=== PATIENT | female | born 1980 | race Caucasian/White ===

== ENCOUNTER 2023-09-12 09:11 | Outpatient (RCR) | payer BC, SELFPAY | END 2023-09-12 11:31 | disposition home or self-care (01) | LOC: RPT 09:11 | PROVIDERS: ATTENDING PHYSICIAN Obstetrics & Gynecology; PRIMARYCARE PHYSICIAN Family Medicine | DX: N39.46 Mixed incontinence (principal) | CPT/HCPCS: 97110; 97112 ==

== ENCOUNTER → 2023-12-21 11:42 | Outpatient (REF) | payer BC, SELFPAY | LOC: RAD 11:42 | PROVIDERS: ATTENDING PHYSICIAN Physician Assistant Medical; FAMILY PHYSICIAN Family Medicine | DX: M54.2 Cervicalgia (principal); M54.9 Dorsalgia, unspecified; M25.572 Pain in left ankle and joints of left foot | CPT/HCPCS: 72052; 72072; 73610 ==

== ENCOUNTER → 2025-02-24 12:12 | Outpatient (REF) | payer OTHER, SELFPAY | LOC: RAD 12:12 | PROVIDERS: ATTENDING PHYSICIAN Physician Assistant Medical; FAMILY PHYSICIAN Family Medicine | DX: M25.572 Pain in left ankle and joints of left foot (principal); M25.561 Pain in right knee; M25.512 Pain in left shoulder | CPT/HCPCS: 73030; 73564 ==